=== PATIENT | female | born 1960 | race Caucasian/White ===

== ENCOUNTER 2017-04-17 15:35 | Emergency (ER) | payer MEDICARE ==
--- NOTE | 2017-04-17 16:37 | ED Physician Documentation ---
PD HPI ABD PAIN - Stated complaint Stated Complaint: ABD BLOAT X'S 2WKS - Chief complaint Chief Complaint: Abd Pain - History obtained from History obtained from: Patient - History of Present Illness Timing - onset: Other (For the past 2 weeks especially, but potentially longer, as long as 2 months she has increasing abdominal girth and pressure without significant pain. She's tried a lot of laxity is in is having soft bowel movements but this does not improve her symptoms. She denies any weight loss. She did have one episode of vomiting a few nights ago and has had decreased flatus. Only abdominal surgery in the past was 2 C-sections. She denies any alcohol use or history of liver dysfunction. Has not had a colonoscopy.) Review of Systems Ten Systems: 10 systems reviewed and negative Constitutional: denies: Fever, Chills, Fatigue, Weight Loss Cardiac: denies: Chest pain / pressure, Palpitations Respiratory: denies: Dyspnea, Cough GI: reports: Abdominal Pain, Nausea. denies: Vomiting, Constipation, Diarrhea, Hematemesis, Bloody / black stool : denies: Dysuria, Frequency PD PAST MEDICAL HISTORY - Past Medical History Past Medical History: Yes Psych: Depression Musculoskeletal: Chronic back pain - Past Surgical History Past Surgical History: Yes /CMS EXPERT: section - Present Medications Home Medications: Ambulatory Orders Medication Instructions Recorded Confirmed FLUoxetine [PROzac] 20 mg PO DAILY 04/17/17 04/17/17 Metoclopramide [Reglan] 10 mg PO Q6H PRN #20 tablet 04/17/17 - Allergies Allergies/Adverse Reactions: Allergies Allergy/AdvReac Type Severity Reaction Status Date / Time No Known Drug Allergies Allergy Verified 04/17/17 15:45 - Social History Does the pt smoke?: Yes Smoking Status: Current every day smoker Does the pt drink ETOH?: No Does the pt have substance abuse?: No - Family History Family history: reports: Non contributory - Immunizations Immunizations are current?: Yes PD ED PE NORMAL - Vitals Vital signs reviewed: Yes - General General: Alert and oriented X 3, No acute distress - HEENT HEENT: PERRL, EOMI - Neck Neck: Supple, no meningeal sign, No bony TTP - Cardiac Cardiac: RRR, No murmur - Respiratory Respiratory: No respiratory distress, Clear bilaterally - Abdomen Abdomen: Normal bowel sounds, Soft, Non tender, Other (Bedside ultrasound demonstrates no ascites) - Back Back: No CVA TTP, No spinal TTP - Derm Derm: Normal color, Warm and dry - Extremities Extremities: No edema, No calf tenderness / cord - Neuro Neuro: Alert and oriented X 3, Normal speech - Psych Psych: Normal mood, Normal affect Results - Vitals Vitals: Vital Signs - 24 hr 04/17/17 04/17/17 15:42 18:07 Temperature 36.6 C Heart Rate 86 62 Respiratory 20 18 Rate Blood Pressure 123/85 H 122/52 L O2 Saturation 97 97 Oxygen O2 Source Room air - Labs Labs: Laboratory Tests 04/17/17 04/17/17 04/17/17 16:40 16:40 16:45 WBC 10.7 RBC 4.52 Hgb 13.8 Hct 41.0 MCV 90.8 MCH 30.5 MCHC 33.6 RDW 13.1 Plt Count 221 MPV 8.3 Neut # 4.9 Lymph # 4.4 H Burke # 1.0 Eos # 0.3 Baso # 0.2 H Absolute Nucleated RBC 0.00 Nucleated RBCs 0.0 Sodium 138 Potassium 4.0 Chloride 105 Carbon Dioxide 25 Anion Gap 8.0 BUN 10 Creatinine 0.8 Estimated GFR (MDRD) 73 L Glucose 90 Calcium 9.2 Total Bilirubin 0.2 AST 43 H ALT 47 Alkaline Phosphatase 76 Total Protein 7.2 Albumin 4.0 Globulin 3.2 Albumin/Globulin Ratio 1.3 Lipase 27 Urine Color YELLOW Urine Clarity CLEAR Urine pH 6.0 Ur Specific [place] 1.025 Urine Protein NEGATIVE Urine Glucose (UA) NEGATIVE Urine Ketones NEGATIVE Urine Occult Blood NEGATIVE Urine Nitrite NEGATIVE Urine Bilirubin NEGATIVE Urine Urobilinogen 0.2 (NORMAL) Ur Leukocyte Esterase NEGATIVE Ur Microscopic Review NOT INDICATED Urine Culture Comments NOT INDICATED - Rads (name of study) CT A/P Radiology: EMP read contemporaneously (Dependent gallstone, fatty liver, normal appendix, no mass lesion) PD MEDICAL DECISION MAKING - ED course ED course: 57-year-old woman presents with inexplicable bloating. Also some historical concern for gastroparesis, the other night she had a large meal and then vomited up the next morning pretty much whole. She does smoke marijuana daily and advised to stop. We will trial Reglan. CT imaging and labs are basically negative except for the gallstones which I feel are likely incidental, she has no right upper quadrant tenderness. Departure - Departure Disposition: 01 Home, Self Care Clinical Impression: Abdominal pain Qualifiers: Abdominal location: generalized Qualified Code(s): R10.84 - Generalized abdominal pain Vomiting Qualifiers: Vomiting type: unspecified Vomiting Intractability: non-intractable Nausea presence: with nausea Qualified Code(s): R11.2 - Nausea with vomiting, unspecified Condition: Good Record reviewed to determine appropriate education?: Yes Instructions: Abdominal Pain Follow-Up: Dave Pal MD [Provider Admit Priv/Credential] - Prescriptions: Metoclopramide [Reglan] 10 mg PO Q6H PRN #20 tablet PRN Reason: Nausea / Vomiting Comments: Stop marijuana use. Trial medication. Whether better or not followup with the surgeon for reevaluation and discussion for colonoscopy as you are over due. Your blood pressure was elevated today on check in to the emergency department. This does not mean that you have hypertension, it is a common phenomenon to check into the emergency department and have elevated blood pressure. I recommend that you see your primary care physician within the week to have it rechecked when you're feeling better. Discharge Date/Time: 04/17/17 18:56
[2017-04-17 16:52] LABS: BASOPHILS # (AUTO) 0.2 10^3/uL (0.0-0.1); BASOPHILS % (AUTO) 1.4 %; EOSINOPHILS # (AUTO) 0.3 10^3/uL (0.0-0.7); EOSINOPHILS % (AUTO) 2.5 %; HGB - HEMOGLOBIN 13.8 g/dL (12.0-16.0); LYMPHOCYTES # (AUTO) 4.4 10^3/uL (1.5-3.5); LYMPHOCYTES % (AUTO) 41.2 %; MEAN CORPUSCULAR HEMOGLOBIN 30.5 pg (27.0-31.0); MEAN CORPUSCULAR HGB CONC 33.6 g/dL (32.0-36.0); MEAN CORPUSCULAR VOLUME 90.8 fL (81.0-99.0); MEAN PLATELET VOLUME 8.3 fL (7.9-10.8); MONOCYTES % (AUTO) 8.9 %; NEUTROPHILS # (AUTO) 4.9 10^3/uL (1.5-6.6); RED BLOOD COUNT 4.52 10^6/uL (4.20-5.40); RED CELL DISTRIBUTION WIDTH 13.1 % (12.0-15.0); UNCORRECTED WHITE BLOOD COUNT 10.7 x10^3/uL; WHITE BLOOD COUNT 10.7 x10^3/uL (4.8-10.8)
[2017-04-17 16:52] LABS: BILIRUBIN,URINE NEGATIVE (NEGATIVE); UA CHARGE (STRIP ONLY) YES; UR CULTURE IF IND NOT INDICATED
[2017-04-17 17:04] LABS: ALBUMIN/GLOBULIN RATIO 1.3 (1.0-2.2); BILIRUBIN,TOTAL 0.2 mg/dL (0.2-1.0); CALCIUM 9.2 mg/dL (8.5-10.3); CREATININE 0.8 mg/dL (0.4-1.0); TOTAL PROTEIN 7.2 g/dL (6.7-8.2)
[2017-04-17] MEDS ORDERED: IOPAMIDOL-300 100 ML VIAL IVP ONE (18:06)
[2017-04-17 18:08] VITALS: BP 122/52
--- NOTE | 2017-04-17 18:27 | CT Preliminary Report ---
Exam: CT Abdomen/Pelvis W/ IMPRESSION: 1. Distended gallbladder with 12 mm dependent stone. Consider ultrasound if clinically warranted. 2. Fatty liver. 3. Normal retrocecal appendix. [facility] SITE ID: [id number]
--- NOTE | 2017-04-17 18:30 | CT Report ---
EXAM: CT ABDOMEN AND PELVIS EXAM DATE: 04/17/2017 06:09 PM. CLINICAL HISTORY: IV only, abd bloating. COMPARISONS: None. TECHNIQUE: Routine helical CT imaging was performed through the abdomen and pelvis. IV contrast: 100 cc Isovue-300. Enteric contrast: No. Reconstructions: Coronal and sagittal. In accordance with CT protocol optimization, one or more of the following dose reduction techniques w ere utilized for this exam: automated exposure control, adjustment of mA and/or KV based on patient s ize, or use of iterative reconstructive technique. FINDINGS: Lung Bases: Mild dependent bibasilar atelectasis. Liver: Fatty liver. No masses. Gallbladder/Bile Ducts: Distended gallbladder contains at least one dependent 12 mm stone. No gallbla dder wall thickening. Spleen: Normal. Pancreas: Normal. Adrenal Glands: Normal. Kidneys: Normal. No masses or hydronephrosis. Peritoneal Cavity/Bowel: The cecum is collapsed adjacent to ileocecal valve, suspect peristalsis. No obstructive change. The appendix is well visualized and normal. Pelvic Organs: Normal. The bladder and visualized pelvic organs are within normal limits. Vasculature: No aneurysms or other significant abnormality. Atherosclerosis. Bones: L5-S1 degenerative changes. Other: None. IMPRESSION: 1. Distended gallbladder with 12 mm dependent stone. Consider ultrasound if clinically warranted. 2. Fatty liver. 3. Normal retrocecal appendix. [facility] Referring Provider Line: [phone] SITE ID: [id number]
== END 2017-04-17 18:56 | disposition home or self-care (01) ==
LOC: ED 15:35
DX: R10.84 Generalized abdominal pain (principal); R11.2 Nausea with vomiting, unspecified; R03.0 Elevated blood-pressure reading, without diagnosis of hypertension; F17.200 Nicotine dependence, unspecified, uncomplicated
CPT/HCPCS: 36415; 74177; 80053; 81003; 83690; 85025; 99283; 99284; Q9967; 81001; 87086

== ENCOUNTER 2022-10-28 08:00 | Outpatient (CLI) | payer MEDICARE ==
--- NOTE | 2022-10-28 15:12 | XRAY Report ---
PROCEDURE: Knee 3 View RT INDICATIONS: RIGHT KNEE OSTEROARTHRITIS TECHNIQUE: 3 views of the right knee(s) were acquired. COMPARISON: None. FINDINGS: Bones: No fractures or dislocations. No suspicious bony lesions. Moderate medial and lateral sid rtmental space narrowing. Mild patellofemoral joint space narrowing noted as well. No marginal osteop hyte Soft tissues: Small joint effusion. No suspicious soft tissue calcifications. IMPRESSION: Mild to moderate tricompartmental osteoarthritis. Reviewed by: Aldair Shrestha MD on 10/28/2022 2:11 PM AKST Approved by: Aldair Shrestha MD on 10/28/2022 2:11 PM [facility] Station ID: [id number]
== END 2022-10-28 23:59 | disposition home or self-care (01) ==
LOC: DI.S 08:00
PROVIDERS: ATTEND Emergency Medicine
DX: M17.11 Unilateral primary osteoarthritis, right knee (principal)